=== PATIENT | female | born 1965 | race Caucasian/White ===

== ENCOUNTER 2019-02-28 03:09 | Emergency (ER) | payer BC ==
[2019-02-28] MEDS ORDERED: ONDANSETRON HCL IV 4 MG/2 ML VIAL IVP ONE (03:23)
[2019-02-28] MEDS ORDERED: MORPHINE SULFATE 10 MG/ML VIAL IVP ONE (03:24)
--- NOTE | 2019-02-28 03:28 | Emergency Department Record ---
History of Present Illness - General Chief Complaint: Abdominal Pain Stated Complaint: ABD PAIN/VOMITING Time Seen by Provider: 02/28/19 03:23 Source: Patient Mode of Arrival: Ambulatory Limitations: No limitations - History of Present Illness Initial Comments: 53 yo female presents to ED for evaluation of epigastric abdominal pain symptoms that began 2-3 hours ago associated with nausea and vomiting. Patient reports previous hysterectomy and gastric sleeve performed 2 years ago. Patient denies fevers, chills, or recent illness. Patient denies health problems at her baseline. MD Complaint: Abdominal pain Onset/Timin -: Hour(s) Location: Epigastric Radiation: Back Severity scale (1-10): 8 Quality: Sharp, Stabbing Consistency: Constant Improves With: Nothing Worsens With: Nothing Associated Symptoms: Vomiting - Related Data Patient : No Hx Age of Menopause: 47 Allergies Allergy/AdvReac Type Severity Reaction Status Date / Time codeine Allergy SWELLING Verified 08/08/15 11:24 (GENERAL) Penicillins Allergy SWELLING Verified 08/08/15 11:24 (GENERAL) Travel Screening - Travel/Exposure Within Last 30 Days Have you traveled within the last 30 days?: No - Travel Symptoms Symptom Screening: None Review of Systems Constitutional: Denies: Chills, Fever, Malaise, Night sweats Eyes: Denies: Eye discharge, Eye pain ENT: Denies: Congestion, Ear pain, Epistaxis Respiratory: Denies: Cough, Dyspnea Cardiovascular: Denies: Chest pain, Dyspnea on exertion Endocrine: Denies: Fatigue, Heat or cold intolerance Gastrointestinal: Reports: Abdominal pain, Nausea, Vomiting. 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) - GI Hx GI Disorders: No - Hx Genitourinary Disorders: No - ENDOCRINE Hx Endocrine Disorders: No - MUSCULOSKELETAL Hx Musculoskeletal Disorders: Yes Hx Arthritis: Yes Comment:: bone spurs in neck, right knee ruptured bakers cyst-08/04/15 - PSYCH Hx Psych Problems: Yes Hx Anxiety: Yes - HEMATOLOGY/ONCOLOGY Hx Hematology/Oncology Disorders: No Family Medical History Any Significant Family History?: Yes Hx Heart Disease: Father *Heart Comment: CAD Hx HTN: Mother Physical Exam - General General Appearance: Alert, Oriented x3, Cooperative, Moderate distress Limitations: No limitations - Head Head exam: Atraumatic, Normocephalic, Normal inspection Head exam detail: negative: Abrasion, Contusion, William's sign, General tenderness, Hematoma, Laceration - Eye Eye exam: Normal appearance. negative: Conjunctival injection, Periorbital swelling, Periorbital tenderness, Scleral icterus - ENT Ear exam: negative: Auricular hematoma, Auricular trauma Nasal Exam: negative: Active bleeding, Discharge, Dried blood, Foreign body Mouth exam: negative: Drooling, Laceration, Muffled voice, Tongue elevation - Neck Neck exam: Normal inspection. negative: Meningismus, Tenderness - Respiratory Respiratory exam: Normal lung sounds bilaterally. negative: Rales, Respiratory distress, Rhonchi, Stridor - Cardiovascular Cardiovascular Exam: Regular rate, Normal rhythm, Normal heart sounds - GI/Abdominal GI/Abdominal exam: Soft, Tenderness (TTP epigastric region, no rebound or guarding symptoms are present.). negative: Rebound, Rigid - Rectal Rectal exam: Deferred - exam: Deferred - Extremities Extremities exam: Normal inspection. negative: Calf tenderness, Pedal edema, Tenderness - Back Back exam: Denies: CVA tenderness (R), CVA tenderness (L) - Neurological Neurological exam: Alert, Normal gait, Oriented X3 - Psychiatric Psychiatric exam: Normal affect, Normal mood - Skin Skin exam: Normal color. negative: Abrasion Type of lesion: negative: abrasion Course Vital Signs 02/28/19 03:18 Temperature 97.7 F Pulse Rate [ 70 Left] Respiratory 20 Rate Blood Pressure 138/81 [Left Arm] Pulse Ox 100 - Reevaluation(s) Reevaluation #1: 02/28/19 03:52 Laboratory studies were reviewed and are grossly unremarkable for an acute process except for: AST 195 ALT 112 Patient is currently in CT for imaging. Reevaluation #2: 02/28/19 04:10 Patient was reassessed upon her return from CT, reports that her pain symptoms are improved to 4/10. Patient reports that she is much more comfortable at this time. Reevaluation #3: 02/28/19 05:05 CT Abdomen and Pelvis: Distended GB with possible GB wall thickening Patient was updated on all results, reports that her pain symptoms continue to be controlled at this time. Given the patient's CT findings, will initiate transfer for US of the abdomen and possible surgical consultation. Case was discussed with Dr. Dawson ([facility] [place]) will accept transfer at this time. Medical Decision Making - Lab Data Result diagrams: 02/28/19 03:25 02/28/19 03:25 Disposition Disposition: Transfer Clinical Impression: Cholecystitis, acute Abdominal pain Qualifiers: Abdominal location: epigastric Qualified Code(s): R10.13 - Epigastric pain Nausea & vomiting Qualifiers: Vomiting type: unspecified Vomiting Intractability: non-intractable Qualified Code(s): R11.2 - Nausea with vomiting, unspecified Disposition: Home, Self-Care Transfer To: [facility] [place] Reason For Transfer: US, surgical consultation Accepting Physician: Samir Time Discussed w/Accepting Physician: 05:09 Condition: (2) Stable Forms: Patient Portal Access Time of Disposition: 05:09 Quality - Quality Measures Quality Measures: N/A - Blood Pressure Screening Does Patient Have Any of the Following: No Blood Pressure Classification: Normal BP Reading Systolic Measurement: 113 Diastolic Measurement: 76 Screening for High Blood Pressure: < Normal BP, F/U Not Required > [[id number]]
[2019-02-28] MEDS ORDERED: 0.9 % SODIUM CHLORIDE 1000ML 1,000 ML IV SCH (03:30)
[2019-02-28 03:33] LABS: BASO % 0.2 % (0-6); EOS % 2.6 % (0-6); GRAN % 66.1 % (47-80); HEMATOCRIT 43.3 % (35.0-47.0); HEMOGLOBIN 14.2 gm/dl (11.6-16.0); MEAN CELL VOLUME 91.2 fl (81-97); MEAN CORPUSCULAR HEMOGLOBIN 29.9 pg (27-33); MEAN CORPUSCULAR HGB CONC 32.8 g/dl (32-36); MEAN PLATELET VOLUME 9.8 fl (7.4-10.4); MONO % 7.1 % (0-9); PLATELET COUNT 237 K/uL (130-400); RED BLOOD COUNT 4.75 M/uL (3.80-5.40); RED CELL DISTRIBUTION WIDTH 13.4 % (11.5-14.5)
[2019-02-28 03:41] LABS: BLOOD UREA NITROGEN 21 mg/dL (6-20)
[2019-02-28 03:42] LABS: CREATININE 0.6 mg/dL (0.5-0.9); EST GLOMERULAR FILTRATION RATE > 60 mL/min; LIPASE 57 U/L (13-60); TOTAL PROTEIN 6.5 g/dL (6.6-8.7)
[2019-02-28 03:44] LABS: GLUCOSE,RANDOM 100 mg/dL (74-109)
[2019-02-28 03:47] LABS: ALB/GLOB RATIO 1.7 (1.1-1.8); ALBUMIN 4.1 g/dL (4.0-5.0); ALKALINE PHOSPHATASE 87 U/L (35-104); ALT/SGPT 112 U/L (<33); AST/SGOT 195 U/L (10.0-35.0)
--- NOTE | 2019-03-02 10:27 | CT SCAN REPORT ---
EXAM: CT OF THE ABDOMEN AND PELVIS WITH CONTRAST HISTORY: ABDOMINAL PAIN, VOMITING, PRIOR GASTRIC SLEEVE. TECHNIQUE: CT of the abdomen and pelvis was performed with 100 ml Omnipaque 300 intravenous contrast. Comparison: CT of the abdomen and pelvis 02/22/16. FINDINGS: The lung bases are clear. Mild periportal edema throughout the liver. The gallbladder appears mildly distended with mild pericholecystic fat stranding. No visible gallstones. No appreciable biliary ductal dilation. Unremarkable appearance of the adrenal glands, pancreas, and spleen. Multiple small left renal pelvic cysts. No hydronephrosis. Symmetric renal perfusion. Sigmoid colon diverticulosis without evidence of acute diverticulitis. Normal appendix. The stomach and small bowel are nondilated. Post surgical change of the stomach. No free air or significant free fluid. No intrapelvic masses. Unremarkable appearance of the urinary bladder. The abdominal aorta is minimally calcified without aneurysmal dilatation. There is a small fat containing infraumbilical ventral wall hernia. Right hip arthroplasty. No acute osseous findings. IMPRESSION: 1. MILD GALLBLADDER DISTENTION WITH EQUIVOCAL PERICHOLECYSTIC FAT STRANDING; NO DEFINITE GALLSTONES VISIBLE BY CT. IF THERE IS CLINICAL CONCERN FOR CHOLECYSTITIS, RECOMMEND ULTRASOUND FOLLOW-UP. 2. MILD NONSPECIFIC PERIPORTAL EDEMA THROUGHOUT THE LIVER. 3. SMALL FAT CONTAINING MIDLINE INFRAUMBILICAL FAT CONTAINING HERNIA. JOB NUMBER: [id number] [facility]
== END 2019-02-28 05:25 | disposition home or self-care (01) ==
LOC: ER 03:09
DX: K81.0 Acute cholecystitis (principal); R11.2 Nausea with vomiting, unspecified; R10.13 Epigastric pain; Z87.891 Personal history of nicotine dependence
CPT/HCPCS: 74177; 80053; 80320; 83690; 85025; 96361; 96374; 96375; 99285; J2270; J2405; J7030

== ENCOUNTER 2019-04-12 08:37 | Day surgery (SDC) | payer BC ==
[~2019-04-12 08:37] MED LIST: ACETAMINOPHEN 1,000 MG/100 ML BTL IVPB ONE; FAMOTIDINE 20MG TABLET PO ONE; MECLIZINE 25 MG TABLET PO ONE; METOCLOPRAMIDE 10 MG TABLET PO ONE
[2019-04-12] MEDS ORDERED: ROCURONIUM BROMIDE 50MG/5ML VIAL IV ONE (08:38)
[2019-04-12] MEDS ORDERED: MIDAZOLAM HCL 2MG/2ML VIAL IV ONE (08:38)
[2019-04-12] MEDS ORDERED: FENTANYL PF 100MCG/2ML VIAL IV ONE ×2 (08:38)
[2019-04-12] MEDS ORDERED: DEXAMETHASONE 4 MG/ML 1ML VIAL IVP ONE (08:38)
[2019-04-12] MEDS ORDERED: LIDOCAINE 2% MDV (20MG/ML) 20ML VIAL IV ONE (08:38)
[2019-04-12] MEDS ORDERED: PROPOFOL 10 MG/ML VIAL IV ONE (08:38)
[2019-04-12] MEDS ORDERED: KETOROLAC 30 MG/ML VIAL IVP ONE (08:38)
[2019-04-12] MEDS ORDERED: ONDANSETRON HCL IV 4 MG/2 ML VIAL IVP ONE (08:38)
[2019-04-12] MEDS ORDERED: RINGERS SOLUTION,LACTATED 1,000 ML IV ONE (09:00)
[2019-04-12] MEDS ORDERED: FENTANYL PF 100MCG/2ML VIAL IVP ONE ×2 (11:15→11:18)
[2019-04-12] MEDS ORDERED: HYDROCODONE/APAP 5/325MG TABLET PO ONE (11:42)
--- NOTE | 2019-04-13 08:30 | Operative Note ---
DATE OF SURGERY: 04/12/2019 SURGEON: Harsha Ryan DO PREOPERATIVE DIAGNOSIS: Cholelithiasis with chronic cholecystitis. POSTOPERATIVE DIAGNOSIS: Cholelithiasis with chronic cholecystitis. OPERATION: Laparoscopic cholecystectomy. INDICATION: The patient is a 53-year-old female who was admitted before for acute cholecystitis. We did discuss cholecystectomy. Risks, benefits, and alternatives were discussed. Risks include bleeding, infection, acute or chronic pain, recurrence. She understood this fully. PROCEDURE: Thereafter, consent was signed and questions answered. She was taken to the operating room and placed in a supine position. General anesthesia was administered per the department of anesthesia. The patient's abdomen was prepped and draped in the usual sterile fashion. At this time, adequate timeout was performed. The infraumbilical region was anesthetized with a total of 5 mL of 0.25% Sensorcaine with epinephrine. A 2 cm infraumbilical incision was made. This was carried down to the anterior rectus fascia. This was incised. Cecilia clamps were placed on the fascial edges and brought up into the wound. Stay sutures of 0 Vicryl were placed. Posterior rectus sheath was identified and incised. The peritoneal cavity was entered bluntly. At this time, a 10 mm blunt Natalio port was placed. Adequate pneumoperitoneum was established. Under direct visualization, additional 5 mm epigastric and two 5 mm right subcostal ports were placed. The gallbladder was identified. It was noted to contain dense omental adhesions. This was retracted in a cephalad and lateral direction opening up the angle of Calot. The hepatocystic triangle was thoroughly dissected out. There was no aberrant anatomy, no posterior ductal structures. The cystic duct and cystic artery were clearly identified. Each one was doubly clipped and cut in a standard fashion. Gallbladder was taken off the liver with Aden harmonic. Prior to cutting these, we did have an excellent critical view of safety. At this time, the gallbladder was extracted through the umbilical port. Right upper quadrant was rechecked and found to be hemostatic. No bleeding. No bile leak. No bowel injury noted. I did irrigate slightly. This was aspirated until clear. At this time, pneumoperitoneum was released. All ports were removed. The fascia was closed with 0 Vicryl in a [id number] fashion. The skin at all ports was closed with 4-0 Vicryl. The patient was taken to the recovery room in satisfactory condition. FINDINGS AT THE TIME OF SURGERY: Chronic cholecystitis. CC: DO JESSICA Guillermo
== END 2019-04-12 12:14 | disposition home or self-care (01) ==
LOC: SUR 08:37
PROVIDERS: ATTEND Surgery
DX: K80.10 Calculus of gallbladder with chronic cholecystitis without obstruction (principal)
CPT/HCPCS: 47562; 00790; J1885; J2405; J3010; J7120